=== PATIENT | male | born 1945 | race Caucasian/White ===

== ENCOUNTER 2017-04-23 06:05 | Day surgery (SDC) | payer MEDICARE ==
[~2017-04-23 06:05] MED LIST: Lactated Ringers 1,000 ML IV SCH
[2017-04-23] MEDS ORDERED: DIPRIVAN 200 MG/20 ML IV ONE (06:06)
[2017-04-23] MEDS ORDERED: Ketamine HCl 50 MG/ML IJ ONE (06:06)
[2017-04-23] MEDS ORDERED: Lactated Ringers 1,000 ML IV ONE (07:08)
[2017-04-23 09:49] VITALS: PULSE 64
[2017-04-23 09:51] VITALS: BP 144/72; O2SAT 98
--- NOTE | 2017-04-23 14:23 | OP ---
SURGERY DATE/TIME: 04/23/2017 0805 PREOPERATIVE DIAGNOSIS: Screening exam. POSTOPERATIVE DIAGNOSIS: Normal colon. PROCEDURE: Colonoscopy. SURGEON: Dr. Carias. ANESTHESIA: MAC. Medications given by anesthesia department. HISTORY: The patient is a 71 year-old white male patient presenting now for screening colonoscopy. He reports he had a colon exam ten years ago which was normal. He was reappraised of the risks of the procedure including the risk of perforation, phlebitis, untoward reaction to medication, bleeding and missed lesions. The patient verbalized his understanding and desired to have the procedure performed. DESCRIPTION OF PROCEDURE: The patient was given the medications by the anesthesia department. He had continuous pulse oximetry, ECG monitoring, intermittent blood pressure monitoring and tidal CO2 monitoring during the examination. He was placed in the left lateral decubitus position. A digital rectal examination was performed and revealed normal anal sphincter tone and no masses and normal prostate. The flexible Olympus pediatric colonoscope was used to intubate the rectum. A view of the colon was developed sequentially to the cecum. Upon insertion and withdrawal, including a retroflex view in the rectum, no mucosal lesions were encountered. The scope was removed from the patient who tolerated the procedure well and was sent back to OP recovery in good condition. The prep was noted to be fair.
== END 2017-04-23 09:30 | disposition home or self-care (01) ==
LOC: SDC 06:05
PROVIDERS: ATTEND Family Medicine
PROC: 0DJD8ZZ Inspection of Lower Intestinal Tract, Via Natural or Artificial Opening Endoscopic (ICD-10-PCS; principal; 2017-04-23)
DX: I25.810 Atherosclerosis of coronary artery bypass graft(s) without angina pectoris (principal)
CPT/HCPCS: 93005; G0121; 00812; 99100; J2704

== ENCOUNTER 2021-10-21 07:09 | Day surgery (SDC) | payer MEDICARE ==
[~2021-10-21 07:09] MED LIST changes: -Lactated Ringers 1,000 ML IV SCH; +Marcaine Mpf 0.5% Vial 30 Ml ONE; +XYLOCAINE 1% HCL 20 ML MDV ONE
[2021-10-21] MEDS ORDERED: Lactated Ringers 1,000 ML IV SCH (07:30)
[2021-10-21] MEDS ORDERED: CEFAZOLIN 2 GM-D5W BAG** 2 GM/50 ML ML IV ONE (08:48)
[2021-10-21] MEDS ORDERED: CEFAZOLIN 2 GM-D5W BAG** 2 GM/50 ML ML IV SCH (09:00)
[2021-10-21] MEDS ORDERED: Zofran 4 MG/2 ML VIAL ONE (10:34)
[2021-10-21] MEDS ORDERED: TORAdol 30 mg Injection ONE (10:34)
[2021-10-21] MEDS ORDERED: Xylocaine-Mpf 2% 5 Ml Vial ONE (10:34)
[2021-10-21] MEDS ORDERED: Amidate 20 MG/10 ML IV ONE (10:34)
[2021-10-21] MEDS ORDERED: DIPRIVAN 200 MG/20 ML IV ONE (10:34)
[2021-10-21] MEDS ORDERED: Zemuron 100 MG/10 ML ONE (10:34)
[2021-10-21] MEDS ORDERED: SUBLIMAZE 100 MCG/2 ML ONE (10:34)
[2021-10-21] MEDS ORDERED: Decadron 4 MG INJ ONE (10:34)
[2021-10-21] MEDS ORDERED: BRIDION 200MG/2ML IV ONE (10:34)
[2021-10-21] MEDS ORDERED: PHENYLEPHRINE HCL ONE (10:42)
[2021-10-21] MEDS ORDERED: Ephedrine Sulfate 50 MG/ML ONE (11:47)
--- NOTE | 2021-10-21 14:16 | XRAY ---
Indication: Left foot triplanar midfoot osteotomy with beaming. Intraoperative fluoroscopy provided for 2 minutes 45 seconds. 16 digital spot images ultimately demonstrates fusion 1st tarsocalcaneal joint and fusion 4th/5th talotarsal metatarsals all with intact screws. Correlate with intraoperative findings/report.
--- NOTE | 2021-10-21 15:52 | XRAY ---
2 minutes and 45 seconds fluoroscopy time in surgery for resection of the left foot.
[2021-10-21 16:05] VITALS: O2SAT 95
[2021-10-21 16:33] VITALS: BP 132/70; PULSE 68
--- NOTE | 2021-10-24 11:44 | OP ---
SURGERY DATE/TIME: 10/21/2021 1108 PREOPERATIVE DIAGNOSES: 1) Charcot osteoarthropathy left foot. 2) Gastrocnemius equinus. 3) Foot deformity acquired. 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 5) Forefoot abduction. 6) Foot chronic diabetic foot ulcer. POSTOPERATIVE DIAGNOSES: 1) Charcot osteoarthropathy left foot. 2) Gastrocnemius equinus. 3) Foot deformity acquired. 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 5) Forefoot abduction. 6) Foot chronic diabetic foot ulcer. PROCEDURES: 1) Gastrocnemius resection. 2) Triplanar wedge osteotomy of mid foot with bone excision and multiple mid foot arthrodesis and delayed primary closure. SURGEON: Rick Nice DPM. MANAGER MARKET DEVELOPMENT: None. ANESTHESIA: General plus a postoperative ankle block. See anesthesia report for details. HEMOSTASIS: Thigh tourniquet set to 350 mm of Mercury for 80 minutes total tourniquet time. ESTIMATED BLOOD LOSS: Less than 30 cc. INJECTABLES: 30 cc of a 1:1 mixture of 1% lidocaine plain and 0.5% bupivacaine plain injected in an ankle block-type fashion to the left ankle postoperatively. INDICATION FOR SURGERY: Pawan is a very pleasant 75-year-old male who is very well known to my service. He has a long standing history of ulceration underneath the cuboid of his left foot secondary to him developing Charcot neuroarthropathy secondary to diabetes. The patient developed this deformity and was seen by multiple providers for this issue. All provided wound care and was relatively successful. However, was unable to completely close the wound. The patient was brought onto my service approximately one year ago. Discussion in regards to the long standing ulceration and what could be done the patient opted for conservative therapy for extended period of time. At a certain point in the last several months, the patient developed an additional infection that made him worry to some extent about the longevity with the chronic wound care that he was having and he opted to discuss surgical intervention. The patient was frustrated in the fact that he was unable to bear weight and exercise the way he wanted to in the past and the decision was made that surgical intervention was appropriate due to the fact that the patient would like the wound healed and to return to his active lifestyle as he once did before. 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 Bone biopsies were taken in clinic prior to surgical intervention demonstrating no osteomyelitis was identified at the cuboid bone where the chronic ulceration was present. For that reason, we decided to proceed with a reconstruction of the mid foot with a triplanar wedge and deeming for stability purposes and to restore the plantar medial arch while at the same time providing for delayed primary closure of the chronic wound. Plenty of time was allowed for him and his to ask questions which were answered to the patient's apparent satisfaction. It is with that we decided to proceed. DESCRIPTION OF PROCEDURE AND FINDINGS: The patient is brought into the OR and placed on the OR table in the supine position. At this time adequate general anesthesia was administered until the patient was sedated. The left thigh had a well-padded thigh tourniquet and the tourniquet was set to 350 mm of Mercury. At this time the left lower extremity was prepped and draped in the typical sterile fashion and lowered onto the surgical field. At this time a 10 blade was utilized to make an incision at the posterior medial aspect of the patient's distal one-third of the leg. Blunt dissection was carried down to the fascial layer which was once again incised utilizing a 15 blade. At this time [place] were introduced into the site and the gastrocnemius aponeurosis was cut under direct visualization utilizing a 10 blade at the medial aspect and dissection at the lateral aspect being sure not to damage the sural nerve in the dissection site. At this time, copious amounts of sterile saline were utilized to flush the site. A 2-0 Vicryl was utilized to coapt the subcutaneous edge in a simple buried-type fashion and 3-0 Nylon was utilized in a horizontal mattress type fashion to coapt the skin. At this time attention was directed to the lateral aspect of the foot where under fluoroscopic guidance a bone marrow aspirate harvest was performed utilizing a trocar and a syringe. At this time 25 cc was pulled off of the site for later use. At this time a K-wire was introduced from the calcaneus into the tibiotalar joint to hold the calcaneus in pitched position relative to the plantar flexed position that it was in, in order to identify the mid foot abnormality and build to the hind foot. Once this was positioned, the wound at the plantar aspect was identified utilizing the K-wire through the wound to the top of the foot. [place] osteotomy with triplanar wedge was planned around the wound closure. K-wire was introduced at the distal aspect perpendicular to the longitudinal aspect of the metatarsal as well as the perpendicular axis of the rear foot. The angle was approximately 25 degrees and measuring 3 cm of bone being resected from medial tapering down to nothing laterally. A 31 mm sagittal saw was utilized to make bone cuts along the plane of the K-wire with apex out the top of the foot and a wedge taken out of the bottom. When the wedge was removed, the area was flushed with copious amounts of sterile saline and the site was fenestrated by utilizing a 2-0 drill bit and osteotome and rongeur were utilized to prepare the bone surfaces. Copious amounts of graft were packed into the deficit and the deficit was then closed down under fluoroscopic guidance with a K-wire for our 7.0 mm beam in system into the first metatarsal medullary cavity as well as into the talus. An additional beam was planned for the second metatarsal which was introduced utilizing a K-wire for a 5.0 mm beam. At this time both beams were introduced from the metatarsal into the talus this was checked under fluoroscopic guidance in multiple views and deemed to be adequate. The fore foot and rear foot was checked and at this time it was determined that there were some instability at the calcaneal cuboid joint where an additional 4.0 mm cannulated screw was introduced from distal to proximal through the calcaneal cuboid joint with the calcaneal abduction angle from preoperatively. At this time the incisions at the medial aspect of the foot were coapted utilizing a 3-0 Nylon and 2-0 Vicryl in buried-type fashion and a horizontal mattress-type fashion respectively. Following this, attention was directed to the plantar foot where the laxity of the skin provided for excision of the ulceration in a 3:1 ellipse. The ulcer was removed. Undermining was provided of the site and pulse lavage was performed utilizing 3 liters of sterile saline. 2-0 Vicryl was utilized to coapt the subcutaneous skin edges. A suture guard with 2-0 Nylon was placed over the top in order to relieve tension on the wound itself and 3-0 Nylon in a horizontal mattress-type fashion was provided to the plantar aspect of the foot in the delayed primary closure fashion of the surgery. At this time, all incision sites were cleansed with sterile saline and dried. Dressings consisting of iodine, Adaptic, 4x4, Kerlix and a well-padded posterior splint with Sugar-Tong applied with the foot 90 degrees relative to the longitudinal axis of the leg. Prior to the dressing the patient was provided a postoperative ankle block consisting of 30 cc of a 1:1 mixture of 1% lidocaine plain and 0.5% bupivacaine plain. The patient reversed from anesthesia and returned to the postoperative anesthesia care unit with vital signs stable and vascular status intact. The patient handled the anesthesia as well as the procedure without significant complication. Postoperative orders as indicated in the patient's discharge chart.
== END 2021-10-21 16:30 | disposition home or self-care (01) ==
LOC: SDC 07:09
PROVIDERS: ATTEND Podiatrist Foot & Ankle Surgery
DX: M14.672 Charcot's joint, left ankle and foot (principal); M21.6X2 Other acquired deformities of left foot; M21.962 Unspecified acquired deformity of left lower leg; E11.42 Type 2 diabetes mellitus with diabetic polyneuropathy; M24.575 Contracture, left foot; E11.621 Type 2 diabetes mellitus with foot ulcer; S91.302D Unspecified open wound, left foot, subsequent encounter; M79.672 Pain in left foot; Z79.899 Other long term (current) drug therapy
CPT/HCPCS: 13160; 27687; 28122; 28730; 73630; 76000; 82947; 82962; 87086; 99100; J0690; J1100; J1885; J2370; J2405; J2704; J3010

== ENCOUNTER 2022-09-06 08:55 | Day surgery (SDC) | payer MEDICARE ==
[2022-09-06] MEDS ORDERED: LIDOCAINE HCL 2% 100 MG/5 ML IJ ONE (08:56)
[2022-09-06] MEDS ORDERED: Depo-Medrol 40 MG/ML IM ONE (08:56)
[2022-09-06] MEDS ORDERED: DIPRIVAN 200 MG/20 ML IV ONE (10:27)
--- NOTE | 2022-09-06 11:43 | XRAY ---
Indication: Bilateral L4-S1 MBB. Intraoperative fluoroscopy provided for 14 seconds. Single digital spot image submitted for interpretation demonstrates posterior needle tips projecting over the expected left and right L4-S1 nerve roots. Correlate with intraoperative findings/report.
--- NOTE | 2022-09-06 13:38 | XRAY ---
14 seconds of fluoroscopy was used in surgery for a bilateral L4-S1 MBB.
[2022-09-06] MEDS ORDERED: Lactated Ringers 1,000 ML IV ONE (13:54)
== END 2022-09-06 10:53 | disposition home or self-care (01) ==
LOC: SDC-PAIN 08:55
PROVIDERS: ATTEND Psychiatry & Neurology Pain Medicine
DX: M47.816 Spondylosis without myelopathy or radiculopathy, lumbar region (principal); E11.9 Type 2 diabetes mellitus without complications; Z79.899 Other long term (current) drug therapy
CPT/HCPCS: 64493; 64494; 72020; 77002; 82947; J1030; J2704